=== PATIENT | female | born 1950 | race Two or more races ===

== ENCOUNTER 2019-01-02 12:39 | Emergency (ER) | payer MEDICARE, OTHER ==
[~2019-01-02] VITALS: Ht 167.6 cm; Wt 95.0 kg
[2019-01-02 12:48] VITALS: BP 141/89
--- NOTE | 2019-01-02 13:01 | NUR ---
FIRST CONTACT WITH PT. PT STATES TRAVELING FROM [place], RAN OUT OF [facility]-NEEDS REFILL TO GET HER HOME (UNTIL WEDNESDAY.) NO SYMPTOMS. PT'S AOX4. RESPS EVEN AND UNLABORED.
--- NOTE | 2019-01-02 13:30 | NUR ---
Patient given discharge instructions and they have confirmed that they understand the instructions. Patient ambulatory with steady gait.
== END 2019-01-02 13:31 | disposition home or self-care (01) ==
LOC: ED 13:28
DX: Z76.0 Encounter for issue of repeat prescription (principal)
CPT/HCPCS: 99281; 99283